=== PATIENT | female | born 1960 | race Caucasian/White ===

== ENCOUNTER 2018-05-23 09:16 | Day surgery (SDC) | payer OTHER ==
[~2018-05-23] VITALS: Ht 165.1 cm; Wt 158.8 kg
[2018-05-23] MEDS ORDERED: LR 1,000 ML IV SCH (12:28)
[2018-05-23] MEDS ORDERED: METOCLOPRAMIDE HCL 10 MG/2 ML VIAL IVP PRN (12:30)
[2018-05-23] MEDS ORDERED: MORPHINE 4 MG/ML INJ. SYRINGE IVP PRN ×3 (12:30)
[2018-05-23] MEDS ORDERED: IBUPROFEN 800 MG TABLET PO PRN ×2 (13:30→14:30)
[2018-05-23] MEDS ORDERED: OXYCODONE/ACETAMINOPHEN 5-325 TABLET PO PRN ×4 (13:30→14:30)
[2018-05-23] MEDS ORDERED: NS IRRIG SOLN 1000 ML IR ONE (13:35)
[2018-05-23] MEDS ORDERED: fentaNYL CITRATE/PF 100 MCG/2 ML AMP ONE (13:35)
[2018-05-23] MEDS ORDERED: WATER FOR IRRIGATION,STERILE 1,000 ML IRRIG.SOLN IR ONE (13:35)
[2018-05-23] MEDS ORDERED: MIDAZOLAM HCL 5 MG/ML VIAL (VERSED) IV ONE (13:35)
[2018-05-23] MEDS ORDERED: ONDANSETRON HCL 4 MG/2 ML VIAL ONE (13:35)
[2018-05-23] MEDS ORDERED: PROPOFOL 200MG/ 20ML VIAL (DIPRIVAN) IV ONE (13:35)
[2018-05-23] MEDS ORDERED: LR 1,000 ML IV.SOLN IV ONE (13:35)
[2018-05-23] MEDS ORDERED: SEVOFLURANE 15 MIN GAS INH ONE (13:35)
[2018-05-23] MEDS ORDERED: KETOROLAC TROMETHAMINE 30 MG VIAL ONE (13:35)
[2018-05-23] MEDS ORDERED: MORPHINE 4 MG/ML INJ. SYRINGE ONE (14:09)
[2018-05-23] MEDS ORDERED: ONDANSETRON HCL 4 MG/2 ML VIAL IVP PRN (14:30)
[2018-05-23 16:46] VITALS: BP_SYST 126
== END 2018-05-23 15:45 | disposition home or self-care (01) ==
LOC: SDS 09:16 → SMU 09:18 → SDS 15:45
PROVIDERS: ATTEND Obstetrics & Gynecology
DX: N84.0 Polyp of corpus uteri (principal); N95.0 Postmenopausal bleeding; E66.01 Morbid (severe) obesity due to excess calories; G47.33 Obstructive sleep apnea (adult) (pediatric); G62.9 Polyneuropathy, unspecified; M19.90 Unspecified osteoarthritis, unspecified site; G89.29 Other chronic pain; I12.9 Hypertensive chronic kidney disease with stage 1 through stage 4 chronic kidney disease, or unspecified chronic kidney disease; N18.1 Chronic kidney disease, stage 1; Z90.49 Acquired absence of other specified parts of digestive tract; Z87.891 Personal history of nicotine dependence; Z79.899 Other long term (current) drug therapy
CPT/HCPCS: 58558; 88305; C1819; J1885; J2250; J2270; J2405; J2704; J3010; J7120